=== PATIENT | male | born 1985 | race Caucasian/White ===

== ENCOUNTER 2019-08-01 14:58 | Emergency (ER) | payer BC ==
[~2019-08-01] VITALS: Ht 182.9 cm; Wt 108.0 kg
[~2019-08-01 14:58] MED LIST: CEPH-443 PO; SULF1TAB31 PO
[2019-08-01 15:00] VITALS: Ht 182.9 cm; Wt 108.0 kg
[2019-08-01] MEDS ORDERED: KETOROLAC 30 MG INJ IV STA (15:11)
[2019-08-01] MEDS ORDERED: SOD CHLORIDE 0.9% 1,000 ML IV STA (15:11)
[2019-08-01] MEDS ORDERED: CEFTRIAXONE 1 GM/50 ML (PMX) 50 ML IVPB ONE (17:30)
[2019-08-01 18:11] VITALS: BP 130/73; PULSE 92; RESP 17
== END 2019-08-01 18:05 | disposition home or self-care (01) ==
LOC: FTE 14:58
DX: L03.116 Cellulitis of left lower limb (principal); F15.10 Other stimulant abuse, uncomplicated
CPT/HCPCS: 36415; 73610; 73630; 80053; 81003; 83605; 83690; 85025; 87040; 96361; 96365; 96375; J0696; J1885; J7030; Z7502